=== PATIENT | female | born 2005 | race Two or more races ===

== ENCOUNTER 2024-07-30 12:58 | Emergency (ER) | payer OTHER ==
[~2024-07-30] VITALS: Ht 157.5 cm; Wt 68.1 kg
[2024-07-30 13:57] VITALS: BP 123/78; PULSE 90; RESP 18; TEMP 99; O2SAT 97
[2024-07-30] MEDS ORDERED: ERY05OO OP (14:30)
[2024-07-30] MEDS ORDERED: KETO0.5S31 LEFTEYE (14:30)
--- NOTE | 2024-07-30 14:31 | ED.PDOC ---
Eye-HPI HPI Comments 18-year-old female presents for work-related injury that occurred 5 hours ago Reports she hot oil in her eye while cooking food today. Patient immediately was to [place] twice with purified water. No complains of irritation Denies vision changes Denies eye discharge Denies hearing changes, nausea, vomiting Denies eye pain with movement, eye pain in general, difficulty keeping eye open, feeling of something stuck in the eye, sensitivity to light Chief Complaint: Eye Problem Time Seen by MD: 13:32 Primary Care Provider: unknown Reviewed Notes: Nurses Notes, Medications, Allergies Allergies: Coded Allergies: NO KNOWN ALLERGIES (Unverified , 07/30/24) Information Source: Patient Mode of Arrival: Ambulatory Past Medical History PAST MEDICAL HISTORY: Denies Surgical History: Denies all surgeries REGISTERED PHARMACY TECHNICIAN History: Denies all REGISTERED PHARMACY TECHNICIAN Hx Family History Family History: Reviewed,noncontributory to illness, No family hx of Cancer, No family hx of DM, No family hx of Heart govind, No family hx of HTN, No family hx ofKidney govind, No family hx of Liver govind, No family hx of Lung govind, No family hx of Stroke Social History Smoker: Non-Smoker Alcohol: Denies ETOH Use Drugs: Denies Drug Use All Other Systems: Reviewed and Negative (Per HPI) Physical Exam General Appearance: No Apparent Distress, Normal HEENT: Normal ENT Inspection, PERRL/EOMI (No conjunctival injection. Extraocular movements intact. No foreign body appreciated. Pupils equal round reactive to light and accommodation), Pharynx Normal, TMs Normal Neck: Full Range of Motion, Non-Tender, Normal, Normal Inspection Respiratory: Chest Non-Tender, Lungs Clear, No Accessory Muscle Use, No Respir atory Distress, Normal Breath Sounds Cardiovascular: No Edema, No JVD, No Murmur, No Gallop, Normal Peripheral Pulses, Regular Rate/Rhythm Breast Exam: Deferred Gastrointestinal: No Organomegaly, Non Tender, No Pulsatile Mass, Normal Bowel Sounds, Soft Genitalia: Deferred Pelvic: Deferred Rectal: Deferred Extremities: No calf tenderness, Normal capillary refill, Normal inspection, Normal range of motion, Non-tender, No pedal edema Musculoskeletal : Apperance: Normal Neurologic: Alert, digital media planner II-XII nml as Tested, No Motor Deficits, Normal Affect, Normal Mood, No Sensory Deficits Cerebellar Function: Normal Reflexes: Normal Skin: Dry, Normal Color, Warm Lymphatic: No Adenopathy Was a procedure done? Was a procedure done?: No EENT DIFF Eye: Other X-Ray, Labs, Meds, VS Vital Signs Date Time Temp Pulse Resp B/P (MAP) Pulse Ox O2 Delivery O2 Flow Rate FiO2 07/30/24 13:57 99.0 90 18 123/78 (93) 97 99.0 07/30/24 13:57 90 18 97 Room Air 07/30/24 13:21 99.0 90 18 123/78 (93) 97 99.0 X-Ray, Labs, Meds, VS Comment After ROS and physical examination there were no red flags. The eye was irrigated. Based on show decision-making patient agreed to empiric treatment On reevaluation, patient had symptomatic improvement. Patient is stable for discharge at this time. External notes reviewed. Test results and diagnostic imaging interpreted. All diagnostic findings, discharge care, education and instructions provided Follow-up with optometry in 24-48 hours Patient verbalized understanding and agreed to treatment plan Vital signs stable, afebrile, no acute distress noted Patient ambulatory with strong steady gait Advised to return precautions for any new or worsening symptoms, return to ER immediately for re-evaluation Patient is aware that the purpose of this visit was for an acute medical emergency requiring emergent stabilization. Chronic conditions, including malignancies have not been ruled out. Patient is instructed to follow up with P [facility] as directed and discharge instructions for continued care and workup. If unable to arrange follow-up, patient is to return to the emergency department for reassessment. Patient (parent or legal guardian if applicable) was given verbal and written discharge instructions and acknowledges understanding. Time of 1ST Reevaluation: 14:26 Reevaluation 1ST: Improved Patient Education/Counseling: Diagnosis, Treatment Family Education/Counseling: Diagnosis, Treatment Departure 1 Departure Time of Disposition: 14:28 Impression: Primary Impression: Chemical exposure of eye Disposition: HOME / SELF CARE / HOMELESS Condition: Stable e-Prescriptions Ketorolac Tromethamine (Ophth) (Ketorolac Tromethamine) 0.5 % Nannette 1 DROP LEFTEYE QID for 2 Days, #5 ML 0 Refills Prov: CHAYA SHEPPARD COMPOUND FILLER 07/30/24 Erythromycin (Erythromycin) 5 Mg/Gm Oin 1 APPLIC OP TID for 7 Days, #5 GRAMS 0 Refills Prov: VALARIECHAYA MALLORY NP 07/30/24 Discharged With: Self Critical Care Note Critical Care Time?: No Stability Stability form required: No Heart Score Heart Score: Heart Score Response (Comments) Value History N/A 0 EKG N/A 0 Age N/A 0 Risk Factors N/A 0 Troponin N/A 0 Total 0 CHAYA HSEPPARD NP Jul 30, 2024 14:31
== END 2024-07-30 14:37 | disposition home or self-care (01) ==
LOC: ER 12:58
DX: S05.8X9A Other injuries of unspecified eye and orbit, initial encounter (principal); Z77.098 Contact with and (suspected) exposure to other hazardous, chiefly nonmedicinal, chemicals; X58.XXXA Exposure to other specified factors, initial encounter; Y93.89 Activity, other specified; Y92.89 Other specified places as the place of occurrence of the external cause; Y99.0 Civilian activity done for income or pay

== ENCOUNTER 2024-11-23 18:25 | Emergency (ER) | payer MEDICAID, OTHER ==
[~2024-11-23] VITALS: Ht 152.4 cm; Wt 66.9 kg
[~2024-11-23 18:25] MED LIST: ERY05OO OP; KETO0.5S31 LEFTEYE
[2024-11-23 19:23] LABS: Hematocrit 37.5 % (36.0-46.0); Hemoglobin 12.9 g/dL (12.2-16.2)
--- NOTE | 2024-11-23 19:41 | ED.PDOC ---
BEARINGIZER HPI Comments 18-year-old came to ER for vaginal bleeding. Patient denies being . Patient has been having vaginal bleeding since October 30, 2024, consuming 5-6 pads per day. She does have history of ovarian cyst, in her primary care provider suggested that her cyst might have ruptured. Patient currently complaining of lower abdominal and back pains, dizziness, weakness and shaking REVIEW OF SYSTEMS: No fever, no chills, or fatigue HEENT: No sore throat, no earache, no congestion, no neck pain. Cardiac: No chest pain. No palpitations. Lungs: No shortness of breath, no cough. GI: No nausea, no vomiting, no diarrhea, no constipation, (+) abdominal pain : No dysuria, frequency, or urgency. No hematuria. (+) vaginal bleeding Musculoskeletal: No joint pain , no joint swelling, no extremity edema. (+) back pain Skin: No rash, no itching. Neuro: No headache, (+) dizziness, (+) weakness Physical exam General: Awake, alert and oriented. No acute distress. Skin: Skin in warm, dry and intact. Appropriate color for ethnicity. Nailbeds pink with no cyanosis. HEENT: The head is normocephalic and atraumatic. Conjunctivae are clear without exudates or hemorrhage. Sclera is non-icteric. EOM are intact. No signs of nystagmus. Eyelids are normal in appearance without swelling or lesions. Oral mucosa is pink and moist Neck: The neck is supple with normal range of motion. No JVD. Cardiac: Heart rate and rhythm are normal. No murmurs, gallops, or rubs are auscultated. Respiratory: No signs of respiratory distress. Lung sounds are clear in all lobes bilaterally without rales, rhonchi, or wheezes. Abdominal: Positive suprapubic tenderness, no CVA tenderness Extremities: Upper and lower extremities are atraumatic in appearance without deformity or edema. Neurological: The patient is awake, alert and oriented to person, place, and time with normal speech. Speech is clear. There is no facial asymmetry. Psychiatric: Appropriate mood and affect. Good judgement and insight. No visual or auditory hallucinations. Chief Complaint: Vaginal Bleed Time Seen by MD: 19:40 Reviewed Notes: Nurses Notes Allergies: Coded Allergies: NO KNOWN ALLERGIES (Unverified , 07/30/24) Home Meds Active Scripts Ketorolac Tromethamine (Ophth) (Ketorolac Tromethamine) 0.5 % Nannette, 1 DROP LEFTEYE QID for 2 Days, #5 ML 0 Refills Prov:CHAYA SHEPPARD MASTIC SPRAYER 07/30/24 Erythromycin (Erythromycin) 5 Mg/Gm Oin, 1 APPLIC OP TID for 7 Days, #5 GRAMS 0 Refills Prov:CHAYA SHEPPARD MASTIC SPRAYER 07/30/24 Mode of Arrival: Ambulatory Past Medical History PAST MEDICAL HISTORY: Denies Surgical History: Denies all surgeries CAE ENGINEER History: Ovarian Cysts Family History Family History: Reviewed,noncontributory to illness, No family hx of Cancer, No family hx of DM, No family hx of Heart govind, No family hx of HTN, No family hx ofKidney govind, No family hx of Liver govind, No family hx of Lung govind, No family hx of Stroke Social History Smoker: Non-Smoker Alcohol: Denies ETOH Use Drugs: Denies Drug Use Lives In: Home Was a procedure done? Was a procedure done?: No Differential Diagnosis (CAE ENGINEER) Vaginal Bleeding: - Incomplete, Blood Loss Anemia, Dysmenorrhea, Ectopic , Menorrhagia, Menometrorrhagia, Menstrual Bleeding, UTI, Other X-Ray, Labs, Meds, VS Vital Signs Date Time Temp Pulse Resp B/P (MAP) Pulse Ox O2 Delivery O2 Flow Rate FiO2 11/23/24 23:12 98.8 76 18 117/78 (91) 98 98.8 11/23/24 23:12 76 18 98 Room Air 11/23/24 18:31 98.8 91 18 152/77 98 98.8 Lab Test 11/23/24 21:31 11/23/24 21:30 11/23/24 19:12 Range/Units Urine Test Negative Negative Urine Color Colorless Yellow Urine Clarity Clear Clear Urine pH 6.5 5.0-9.0 Urine Specific [place] 1.009 1.001-1.035 Urine Protein Negative Negative Urine Ketones Negative Negative Urine Blood 1+ H Negative /uL Urine Nitrite Negative Negative Urine Bilirubin Negative Negative Urine Urobilinogen Normal Negative mg/dL Urine Leukocyte Esterase Negative Negative /uL Urine Glucose Normal Normal mg/dL Hemoglobin 12.9 12.2-16.2 g/dL Hematocrit 37.5 36.0-46.0 % REASON: Pelvic pain, heavy vaginal bleeding ORDER NUMBER(s): [id number], ACCESSION NUMBER(s): [id number] TRANSABDOMINAL PELVIC ULTRASOUND CLINICAL HISTORY: Pelvic pain, heavy vaginal bleeding TECHNIQUE: Multiple grayscale ultrasound images were obtained of the pelvis via transabdominal approach. Limited color Doppler and spectral Doppler acquisitions were also obtained. COMPARISON: None FINDINGS: Uterus: 6.6 x 3.0 x 3.8 cm. The uterine contour is smooth. No myometrial masses are seen. Endometrium: 0.2 cm. No endometrial mass is seen. Right adnexa: right ovary 3.2 x 2.3 x 2.4 cm. Normal arterial blood flow in the ovary. No right adnexal mass seen. Left adnexa: left ovary 2.9 x 1.7 x 2.3 cm. Normal arterial blood flow in the ovary. No left adnexal mass seen. Other: None IMPRESSION: Unremarkable transabdominal pelvic ultrasound. ATED BY: MONAE JACKSON MD DICTATED DATE/TIME: 11/23/242100 SIGNED BY: MONAE JACKSON MD SIGNED DATE/TIME: 11/23/242100 CC: Time of 1ST Reevaluation: 19:37 Reevaluation 1ST: Unchanged Patient Education/Counseling: Need For Follow Up Family Education/Counseling: No Family Present Departure 1 Departure Time of Disposition: 22:25 Impression: Primary Impression: Abnormal uterine bleeding Disposition: HOME / SELF CARE / HOMELESS Condition: Stable Additional Instructions: INSTRUCCIONES DE KRISTIE DE Urgencias Instrucciones: Morena atentamente todas las instrucciones proporcionadas en courtney paquete. Aunque le hayan dado el kristie del Departamento de Emergencias, esto no significa que tenga un "certificado de buena anastasiia". [] Hoy no se vides realizado ningn diagnstico definitivo para sagrario sntomas. Es posible que ests en proceso de desarrollar tyler enfermedad grave. Es por eso que debe regresar al servicio de urgencias sin falta si presenta algn sntoma nuevo o que empeora (especialmente si sagrario sntomas incluyen dolor en el pecho, dificultad para respirar, dolor abdominal, fiebre, dolor de sean, confusin, dificultad para winter o caminar). Sabino es muy importante que consulte a un mdico de atencin primaria dentro de los prximos 3 a 5 stoner para realizar un seguimiento. Si no puede conseguir tyler enrique, regrese al servicio de urgencias para tyler nueva evaluacin. Sangrado vaginal (sin embarazo): Instrucciones de cuidado Abdomen que muestra la ubicacin del tero, el kunal uterino, los ovarios, las trompas de Falopio y la vagina. Descripcin general Es comn tener sangrado o manchado entre periodos. Muchas cosas pueden causarlo. Puedes sangrar debido a problemas hormonales, estrs o la ovulacin. Los fibromas y los DIU (dispositivos intrauterinos) tambin pueden causar sangrado. Si coronel sangrado o manchado es causado por tyler de estas cosas y no es abundante ni sucede con frecuencia, probablemente no necesite preocuparse. Sin embargo, en casos poco frecuentes, tyler infeccin, cncer u otras afecciones graves pueden causar sangrado. Por lo tanto, es posible que necesite ms pruebas para determinar la causa del sangrado. El mdico lo vides examinado cuidadosamente, lina podran surgir problemas ms adelante. Si nota algn problema o sntomas nuevos, busque atencin mdica de inmediato . El seguimiento es fundamental para coronel tratamiento y seguridad. Asegrese de programar y acudir a todas sagrario citas, y llame a coronel mdico si tiene algn problema. Sabino es recomendable estar al tanto de los resultados de sagrario prue bas y llevar tyler lista de los medicamentos que zully. Urban Planning Teacher puedes cuidarte en casa? [place] los analgsicos exactamente ho se lo indiquen. Si el mdico le recet un medicamento para el dolor, tmelo segn lo prescrito. Si no est tomando un analgsico recetado, consulte a coronel mdico si puede yady kezia de venta dilia. No tome aspirina, ya que puede empeorar el sangrado. Si coronel mdico le recet pldoras anticonceptivas para coronel sangrado, tmelas segn las indicaciones. Consuma alimentos ricos en madalyn y vitamina C. Entre los alimentos ricos en madalyn se incluyen la carne danny, los mariscos, los huevos, los frijoles y las verduras de hoja keith. Entre los alimentos ricos en vitamina C se incluyen las frutas ctricas, los tomates y el brcoli. Consulte con coronel mdico si necesita yady pastillas de madalyn o un multivitamnico. Pregntele a coronel mdico cundo puede tener relaciones sexuales. Cundo debes pedir ayuda? Llame al 911 en cualquier momento que considere que necesita atencin de emergencia. Por ejemplo, llame si: Te desmayaste (perdiste el conocimiento). Llame a coronel mdico ahora o busque atencin mdica inmediata si: Tiene sangrado vaginal elaine. Se siente mareado o aturdido o ho si se pudiera desmayar. Tiene dolor abdominal o plvico nuevo o que empeora. Preste atencin a los cambios en coronel anastasiia y asegrese de comunicarse con coronel mdico si: El sangrado empeora. Crees que podras estar embarazada. No mejoras ho esperabas Crditos por sangrado vaginal (sin embarazo): Instrucciones de cuidado Actualizado al: 5 de 2024 Autor: Personal de [employer] Junta de revisin clnica Toda la educacin de [employer]! es revisada por un equipo que incluye mdicos, enfermeras, profesionales avanzados, dietistas registrados y otros profesionales de la anastasiia. ULTRASOUND RESULTS: TRANSABDOMINAL PELVIC ULTRASOUND CLINICAL HISTORY: Pelvic pain, heavy vaginal bleeding TECHNIQUE: Multiple grayscale ultrasound images were obtained of the pelvis via transabdominal approach. Limited color Doppler and spectral Doppler acquisitions were also obtained. COMPARISON: None FINDINGS: Uterus: 6.6 x 3.0 x 3.8 cm. The uterine contour is smooth. No myometrial masses are seen. Endometrium: 0.2 cm. No endometrial mass is seen. Right adnexa: right ovary 3.2 x 2.3 x 2.4 cm. Normal arterial blood flow in the ovary. No right adnexal mass seen. Left adnexa: left ovary 2.9 x 1.7 x 2.3 cm. Normal arterial blood flow in the ovary. No left adnexal mass seen. Other: None IMPRESSION: Unremarkable transabdominal pelvic ultrasound. Comments MDM: 18-year-old female with vaginal bleeding. Patient is well-appearing, nontoxic. Patient's symptoms improved during the ED observation. Vital signs stable. Diagnostic results reviewed and are not urgently actionable. Patient is felt stable for discharge home. Patient advised to follow up with primary care provider promptly and return to the emergency department with any new, worsening or concerning symptoms. I reviewed the following notes from the pt's past medical encounters: N/A The following tests were ordered, and results were reviewed by me: (See diagnostic results section) The following test were independently interpreted by me: N/A Additional information was gathered from interviewing the following independent historians: N/A I reviewed and agreed with the following test results read by other providers: N/A I discussed treatments and results with patient Decision regarding hospitalization or escalation of hospital level of care: Risks and benefits of admission for further treatment of patient's condition was considered however due to patient's stable condition patient will be discharged to follow up closely or return to care for worsening of condition or inability to follow up. Critical Care Note Critical Care Time?: No Stability Stability form required: No Heart Score Heart Score: Heart Score Response (Comments) Value History N/A 0 EKG N/A 0 Age N/A 0 Risk Factors N/A 0 Troponin N/A 0 Total 0 I personally scribed for JOHN POLK MD ([email or web address]) on 11/23/24 at 19:41. Electronically submitted by Amari Hannah ([email or web address]). JOHN POLK MD Nov 23, 2024 19:41
--- NOTE | 2024-11-23 21:04 | DVH ---
TRANSABDOMINAL PELVIC ULTRASOUND CLINICAL HISTORY: Pelvic pain, heavy vaginal bleeding TECHNIQUE: Multiple grayscale ultrasound images were obtained of the pelvis via transabdominal appro ach. Limited color Doppler and spectral Doppler acquisitions were also obtained. COMPARISON: None FINDINGS: Uterus: 6.6 x 3.0 x 3.8 cm. The uterine contour is smooth. No myometrial masses are seen. Endometrium: 0.2 cm. No endometrial mass is seen. Right adnexa: right ovary 3.2 x 2.3 x 2.4 cm. Normal arterial blood flow in the ovary. No right adnex al mass seen. Left adnexa: left ovary 2.9 x 1.7 x 2.3 cm. Normal arterial blood flow in the ovary. No left adnexal mass seen. Other: None IMPRESSION: Unremarkable transabdominal pelvic ultrasound.
[2024-11-23 21:46] LABS: Urine Protein, UAD Negative (Negative)
[2024-11-23] MEDS: KETOROLAC TROMETH 30 MG/ML 1ML VIAL IM ONE (23:07)
[2024-11-23] MEDS: ACETAMINOPHEN 325 MG TAB PO ONE (23:08)
[2024-11-23 23:12] VITALS: BP 117/78; PULSE 76; RESP 18; TEMP 98.8; O2SAT 98
== END 2024-11-23 23:44 | disposition home or self-care (01) ==
LOC: ER 18:27
DX: N93.9 Abnormal uterine and vaginal bleeding, unspecified (principal); N92.1 Excessive and frequent menstruation with irregular cycle; R10.30 Lower abdominal pain, unspecified
CPT/HCPCS: 36415; 76856; 81003; 81025; 85014; 85018; 96372; 99285; J1885